=== PATIENT | female | born 1980 | race American Indian/Alaskan Native ===

== ENCOUNTER 2017-01-27 10:32 | Outpatient (CLI) | payer BC ==
--- NOTE | 2017-01-30 11:54 | Magnetic Resonance Report ---
MRI PELVIS WITHOUTAND WITH CONTRAST: 01/27/17 CLINICAL: Pelvic pain and bleeding. COMPARISON :None. TECHNIQUE: Sagittal, coronal and axial T1 and T2 fat sat sequences plus sagittal, coronal and axial postcontrast T1 fat sequences on a 1.5 Roxanne magnet. 15 cc of Multihance was injected intravenously for contrast portion of exam the consent was obtained prior to the administration of contrast. FINDINGS: The uterus measures 10 cm in length by 5.3 cm AP dimension by 5.4 cm transverse dimension. No uterine fibroid or mass. A fundal submucosal myometrial cyst measures 7.0 mm. The endometrium is normal and measures 5.2 mmAP thickness. Several small nabothian cysts in the cervix. The uterus demonstrates relatively homogeneous enhancement postcontrast. Normal ovaries with small follicles. A dominant follicle of the right ovary measures 5 mm. No adnexal mass. Mild physiologic free fluid. Normal urinary bladder and rectum. The bones and soft tissues are normal. IMPRESSION: 1. A single 7 mm submucosal myometrial cyst and otherwise normal uterus. No uterine fibroid or mass. 2. Normal endometrium. 3. Normal ovaries.
== END 2017-01-27 10:33 | disposition home or self-care (01) ==
LOC: SPVIMAG 10:32
PROVIDERS: ATTEND Radiology Vascular & Interventional Radiology
DX: N85.8 Other specified noninflammatory disorders of uterus (principal); N93.9 Abnormal uterine and vaginal bleeding, unspecified
CPT/HCPCS: 72197; A9577

== ENCOUNTER 2017-03-28 08:14 | Outpatient (CLI) | payer BC ==
--- NOTE | 2017-03-28 09:52 | Cat Scan Report ---
CT ABDOMEN AND PELVIS WITHOUT CONTRAST: 03/28/17 08:14:00 CLINICAL:Urinary tract infections. ICD 10: N39.0 TECHNIQUE: Volumetric acquisition and 1.25 millimeter scan reconstructions from the lung bases through the iliac crest. The study was performed without oral contrast. FINDINGS: Abdomen:The right kidney measures 8.5 x 5.9 x 4.5 cm and the left kidney measures 9.1 x 4.3 x 5.3 cm. Normal renal contours. No renal calculus, mass or cyst. Normal nondilated renal collecting systems and ureters. No ureteral calculus. Normal adrenal glands. Normal aorta and inferior vena cava. Normal liver and bile ducts status post cholecystectomy. Normal stomach, duodenum, pancreas and spleen. No ascites and no pneumoperitoneum. The small bowel and colon are normal. An appendix is not identified. Pelvis: Normal urinary bladder and rectum.A mildly enlarged fibroid uterus measures 11.0 x 5.9 x 8.0 cm. A 1.2 cm right fundal intramural fibroid is the only measurable fibroid. Ovaries are not identified. No adnexal mass or free fluid. Phleboliths in the pelvis. Normal sigmoid colon. IMPRESSION: 1. Normal urinary tract with no urinary calculus identified. 2. Status post cholecystectomy. 3. Uterine leiomyomata with mild uterine enlargement.
== END 2017-03-28 08:15 | disposition home or self-care (01) ==
LOC: SPVIMAG 08:14
PROVIDERS: ATTEND Urology
DX: N39.0 Urinary tract infection, site not specified (principal); D25.1 Intramural leiomyoma of uterus; N85.2 Hypertrophy of uterus; I87.8 Other specified disorders of veins; Z90.49 Acquired absence of other specified parts of digestive tract
CPT/HCPCS: 74176

== ENCOUNTER 2017-11-02 15:36 | Emergency (ER) | payer BC ==
[2017-11-02 16:03] VITALS: BP 125/82
[2017-11-02 18:06] LABS: Bilirubin,Urine NEG (Negative); Blood,Urine LG (Negative); Color,Urine Yellow (Yellow); Mucus,Urine FEW /HPF; Nitrite,Urine NEG (Negative); Protein,Urine <15 mg/dL mg/dL (Negative); Urobilinogen,Urine < 2.0 mg/dL (<2.0)
--- NOTE | 2017-11-02 19:16 | Emergency Department Report ---
Chief Complaint: Vaginal Bleeding Stated Complaint: SENT BY FATS AND OILS LOADER - [facility] History of Present Illness: 37-year-old female who has had 18 days of constant vaginal bleeding. She was evaluated on Monday by associate of her primary experimental flight test mechanic Dr. Daley. She now has dizziness, generalized weakness and right flank pain. - Exam Vital Signs: Vital Signs 11/02/17 15:52 Temperature 97.2 F L Pulse Rate 70 Respiratory 16 Rate Blood Pressure 125/82 O2 Sat by Pulse 100 Oximetry MSE screening note: Focused history and physical exam performed. Due to findings the following was ordered: ED Disposition for MSE Condition: Stable
[2017-11-02 20:13] LABS: Basophils # (Auto) 0.1 K/mm3 (0.0-0.1); Basophils % (Auto) 0.9 % (0.0-1.8); Eosinophils # (Auto) 0.4 K/mm3 (0.0-0.4); Eosinophils % (Auto) 4.4 % (0.0-4.3); Hematocrit 36.5 % (30.3-42.9); Hemoglobin 11.7 gm/dl (10.1-14.3); Lymphocytes # (Auto) 3.3 K/mm3 (1.2-5.4); Lymphocytes % (Auto) 35.4 % (13.4-35.0); Mean Corpuscular HGB Conc 32 % (30-34); Mean Corpuscular Hemoglobin 27 pg (28-32); Mean Corpuscular Volume 85 fl (79-97); Monocytes # (Auto) 0.4 K/mm3 (0.0-0.8); Monocytes % (Auto) 4.4 % (0.0-7.3); Platelet Count 186 K/mm3 (140-440); Red Blood Count 4.29 M/mm3 (3.65-5.03); Red Cell Distribution Width 15.6 % (13.2-15.2)
[2017-11-02] MEDS ORDERED: NACL 0.9% 1000 ML 1,000 ML IV ONE (20:20)
[2017-11-02 20:24] LABS: BUN/Creatinine Ratio 20; Blood Urea Nitrogen 14 mg/dL (7-17); Calcium 8.6 mg/dL (8.4-10.2); Hemolysis Index 7
--- NOTE | 2017-11-02 22:23 | Ultrasound Report ---
FINAL REPORT PROCEDURE: US PELVIC COMPLETE TECHNIQUE: Real-time transabdominal sonography in multiple planes of pelvis was performed with image documentation. This examination was performed without Doppler. Vascular abnormalities, including ovarian torsion, will not be detectable without Doppler evaluation. CPT 03211 HISTORY: heavy vaginal bleeding COMPARISON: No prior studies are available for comparison. FINDINGS: UTERUS Size: 10 x 5 x 6 cm. Endometrial thickness: 18 mm. Orientation: anteverted. Cervix: Normal. A small well-defined cystic lesion measuring 1.2 x 0.8 centimeters is noted near the right uterine cornua. RIGHT Ovary: 2.7 x 1.7 x 1.7 cm. Appearance: Normal. LEFT Ovary: 3.4 x 1.8 x 3.4 cm. Appearance: A cystic lesion measuring 2.5 x 1.4 centimeters is noted.. Pelvic fluid: Minimal free fluid is noted in the pelvic cavity which is within physiologic limits.. Other: None. IMPRESSION: Endometrium is 18 millimeters in thickness. A nonspecific cystic lesion measuring 1.2 x 0.8 centimeters is noted near the right uterine cornu. This most likely represents a an endometrial cyst. Clinical correlation is recommended to rule out other etiologies such as a gestational sac. Follow-up studies are recommended. A small cystic lesion right ovary most likely represents a dominant follicle.
--- NOTE | 2017-11-02 22:26 | Ultrasound Report ---
FINAL REPORT PROCEDURE: US TRANSVAGINAL TECHNIQUE: Real-time transvaginal sonography in multiple planes of the pelvis was performed with image documentation. This examination was performed without Doppler. Vascular abnormalities, including ovarian torsion, will not be detectable without Doppler evaluation. CPT 76378 HISTORY: heavy vaginal bleeding COMPARISON: No prior studies are available for comparison. FINDINGS: UTERUS Size: 10 x 5 x 6 cm. Endometrial thickness: 18 mm. Orientation: anteverted. Cervix: Normal. A small well-defined cystic lesion measuring 1.2 x 0.8 centimeters is noted near the right uterine cornua. RIGHT Ovary: 2.7 x 1.7 x 1.7 cm. Appearance: Normal. LEFT Ovary: 3.4 x 1.8 x 3.4 cm. Appearance: A cystic lesion measuring 2.5 x 1.4 centimeters is noted.. Pelvic fluid: Minimal free fluid is noted in the pelvic cavity which is within physiologic limits.. Other: None. IMPRESSION: Endometrium is 18 millimeters in thickness. A nonspecific cystic lesion measuring 1.2 x 0.8 centimeters is noted near the right uterine cornu. This most likely represents a an endometrial cyst. Clinical correlation is recommended to rule out other etiologies such as a gestational sac. Follow-up studies are recommended. A small cystic lesion right ovary most likely represents a dominant follicle. Findings of this critical report were conveyed to Dr. Hoyt at 10:21 p.m. EST on 11/02/2017.
--- NOTE | 2017-11-02 23:01 | Emergency Department Report ---
ED Female HPI - General Chief complaint: Vaginal Bleeding Stated complaint: SENT BY PRN OCCUPATIONAL THERAPIST Time Seen by Provider: 11/02/17 20:19 Source: patient Mode of arrival: Ambulatory Limitations: No Limitations - History of Present Illness Initial comments: Patient is a 37-year-old female who is presenting with heavy vaginal bleeding for approximately 2 weeks. Patient states that she's never bled to this degree before. Patient states she saw her PRN OCCUPATIONAL THERAPIST who started her on Lysteda however she is still having bleeding and now also has abdominal cramping as well as diarrhea which is side effects of this medication. Patient denies any fevers chills nausea vomiting diarrhea. Patient does state that she' s had some mild shortness of breath fatigued as well however she is taking iron pills. MD Complaint: vaginal bleeding, pelvic pain Severity scale (0 -10): 6 Quality: cramping Improves with: none Associated Symptoms: vaginal bleeding (patient does state that she's been passing clots). denies: vaginal discharge - Related Data Previous Rx's Medication Instructions Recorded Last Taken Type HYDROcodone/APAP 5-325 [[place] 1 each PO Q6HR PRN #12 tablet 11/02/17 Unknown Rx 5/325] medroxyPROGESTERone ACETATE 10 mg PO DAILY #5 tablet 11/02/17 Unknown Rx [Provera] Allergies Allergy/AdvReac Type Severity Reaction Status Date / Time azithromycin Allergy Nausea Verified 11/02/17 15:51 ED Review of Systems ROS: Stated complaint: SENT BY PRN OCCUPATIONAL THERAPIST Other details as noted in HPI Comment: All other systems reviewed and negative ED Past Medical Hx - Past Medical History Previous Medical History?: No - Surgical History Past Surgical History?: Yes Hx Cholecystectomy: Yes Hx Appendectomy: Yes Additional Surgical History: TUBAL LIGATION, ULNAR SURG - Social History Smoking Status: Never Smoker Substance Use Type: Alcohol - Medications Home Medications: Home Medications Medication Instructions Recorded Confirmed Last Taken Type HYDROcodone/APAP 5-325 [[place] 1 each PO Q6HR PRN #12 tablet 11/02/17 Unknown Rx 5/325] medroxyPROGESTERone ACETATE 10 mg PO DAILY #5 tablet 11/02/17 Unknown Rx [Provera] ED Physical Exam - General Limitations: No Limitations General appearance: alert, in no apparent distress - Head Head exam: Present: atraumatic, normocephalic - Eye Eye exam: Present: normal appearance - ENT ENT exam: Present: mucous membranes moist - Neck Neck exam: Present: normal inspection - Respiratory Respiratory exam: Present: normal lung sounds bilaterally. Absent: respiratory distress, wheezes, rales - Cardiovascular Cardiovascular Exam: Present: regular rate, normal rhythm. Absent: systolic murmur, diastolic murmur, rubs, gallop - GI/Abdominal GI/Abdominal exam: Present: soft, tenderness (mild suprapubic tenderness), normal bowel sounds. Absent: distended, guarding, rebound - Extremities Exam Extremities exam: Present: normal inspection - Back Exam Back exam: Present: normal inspection - Neurological Exam Neurological exam: Present: alert, oriented X3 - Psychiatric Psychiatric exam: Present: normal affect, normal mood - Skin Skin exam: Present: warm, dry, intact, normal color. Absent: rash ED Course Vital Signs 11/02/17 11/02/17 15:52 20:54 Temperature 97.2 F L Pulse Rate 70 Respiratory 16 18 Rate Blood Pressure 125/82 O2 Sat by Pulse 100 Oximetry ED Medical Decision Making - Lab Data Result diagrams: 11/02/17 19:36 11/02/17 19:36 - Medical Decision Making Patient's hemoglobin was within normal limits was 11.7. Patient did have an ultrasound done here in the emergency Department that showed endometrial cyst. Patient's test is negative. Patient will be started on Provera and Vicodin for pain control and be sent back to PRN OCCUPATIONAL THERAPIST for further management Critical care attestation.: If time is entered above; I have spent that time in minutes in the direct care of this critically ill patient, excluding procedure time. ED Disposition Clinical Impression: DUB (dysfunctional uterine bleeding) Disposition: - TO HOME OR SELFCARE Is pt being admited?: No Does the pt Need Aspirin: No Condition: Fair Instructions: Dysfunctional Uterine Bleeding (ED) Prescriptions: HYDROcodone/APAP 5-325 [[place] 5/325] 1 each PO Q6HR PRN #12 tablet PRN Reason: Pain medroxyPROGESTERone ACETATE [Provera] 10 mg PO DAILY #5 tablet Referrals: OSCAR SMITH MD [Primary Care Provider] - 3-5 Days
== END 2017-11-02 23:17 | disposition home or self-care (01) ==
LOC: ED 15:36
DX: N93.8 Other specified abnormal uterine and vaginal bleeding (principal); Z90.49 Acquired absence of other specified parts of digestive tract; Z98.51 Tubal ligation status; Z88.1 Allergy status to other antibiotic agents
CPT/HCPCS: 36415; 76830; 76856; 80048; 81001; 84702; 85025; 86850; 86900; 86901; 96360; 99284; J7030

== ENCOUNTER 2017-11-21 08:04 | Day surgery (SDC) | payer BC ==
--- NOTE | 2017-11-20 18:49 | History and Physical Report ---
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 Ku) cystoscopy (2017) Abnormal PAP: positive Infection History HIV Risk Eval: no Personal hx. of genital herpes: yes Hx of STD: HSV Other: HSV Active Medications: IRON () IBUPROFEN 800 MG ORAL TABLET (IBUPROFEN) 1 po q6 hr prn pain ALEVE 220 MG ORAL CAPSULE (NAPROXEN SODIUM) SYMBICORT 160-4.5 MCG/ACT INHALATION AEROSOL (BUDESONIDE-FORMOTEROL FUMARATE) Current Allergies: ZITHROMAX (AZITHROMYCIN TABS) (Critical) Past Medical History: Reviewed history from 04/17/2017 and no changes required: Pre-diabetes Allergies-seasonal Hyperlipidemia Past Surgical History: Reviewed history from 07/28/2017 and no changes required: Tubal Ligation Appendectomy ulna(R) Cholecystectomy urethral dilation (2017) Dr. Ku) cystoscopy (2017) Risk Factors: PAP Smear History: Date of Last PAP Smear: 04/17/2017 Laboratory Results Date/Time Collected: 11/15/2017 Urine HCG: negative Physical Exam Appearance: well developed, well nourished, no acute distress Other Exams Abdomen: soft, non-tender, no masses, Genitourinary Exam Vulva: normal, no lesions or discharge Urethral meatus: normal size and location, no lesions or discharge Urethra: no discharge Bladder: no cystocele Vagina: normal appearance, no discharge, lesions. No evidence of cystocele or rectocele. Cervix: mass, probable prolapsed polyp/fibroid Adnexa: no masses or tenderness Impression & Recommendations: Problem # 1: Excessive and frequent menstruation with irregular cycle (ICD- 626.6) (KPL19-K75.1) Her updated medication list for this problem includes: Ibuprofen 800 Mg Oral Tablet (Ibuprofen) ..... 1 po q6 hr prn pain Aleve 220 Mg Oral Capsule (Naproxen sodium) Orders: Problem # 2: Lump of cervix (ICD-625.8) (KFI79-M89.09) Orders: Will proceed with hysteoscopy D&C and excision of mass Consent reviewed and signed . Possible laparoscopy or laparotomy explained to patient. The risks and alternatives for this surgery were reviewed with the patient. She was informed of possible bleeding, infection, injury to bowel, bladder, ureters or other adjacent organs. The patient was instructed/informed the following: The normal length of hospital stay for this procedure. Nothing to eat or drink after midnight the evening prior to surgery. Clear liquids the day before surgery. Fleets enema the day prior to surgery. Pre-op instruction sheets given. Wound care instructions given. Infection precautions reviewed, patient to call for any signs or symptoms of infection. The usual discomforts associated with this procedure were detailed. Proper use of pain medicines was reviewed. Patient was given ample opportunity to have all her questions answered before signing informed consent. Medications Added to Medication List This Visit: 1) Oxycodone-acetaminophen 5-325 Mg Oral Tablet (Oxycodone-acetaminophen) .... 1-2po q6h 2) Ibuprofen 800 Mg Oral Tablet (Ibuprofen) .... 1 po q6 hr prn pain Other Orders: Urine Test (UPT) (CPT-[id number]) Prescriptions: IBUPROFEN 800 MG ORAL TABLET (IBUPROFEN) 1 po q6 hr prn pain #30 x 1 Entered and Authorized by: Silva Daley MD Method used: Print then Give to Patient RxID: [id number] OXYCODONE-ACETAMINOPHEN 5-325 MG ORAL TABLET (OXYCODONE-ACETAMINOPHEN) 1-2po q6h #12 Tablet x 0 Entered and Authorized by: Silva Daley MD Method used: Print then Give to Patient RxID: [id number] Medications and Allergies Allergies Allergy/AdvReac Type Severity Reaction Status Date / Time azithromycin Allergy Nausea Verified 11/20/17 10:49 Home Medications Medication Instructions Recorded Confirmed Last Taken Type HYDROcodone/APAP 5-325 [[place] 1 each PO Q6HR PRN #12 tablet 11/02/17 11/20/17 Unknown Rx 5/325] Active Meds: Active Medications Cefazolin Sodium (Ancef/Sterile Water 2 Gm/20 Ml) 2 gm in 20 mls @ 80 mls/hr IV PREOP NR PRN Reason: Protocol Exam - Respiratory Positive: normal respiratory effort, clear to auscultation - Cardiovascular Rhythm: regular Assessment and Plan - Patient Problems (1) Cervical mass Status: Acute (2) Excessive and frequent menstruation with irregular cycle Status: Acute
[~2017-11-21 08:04] MED LIST: ANCEF/STERILE WATER 2 GM/20 ML 2 GM/20 ML SYRINGE IV NR
[2017-11-21] MEDS ORDERED: NACL BACTERIOSTATIC INFILTRATI ONE (09:06)
--- NOTE | 2017-11-21 09:21 | Anesthesia Consultation ---
Anesthesia Consult and Med Hx Date of service: 11/21/17 - Airway Anesthetic Teeth Evaluation: Good ROM Head & Neck: Adequate Mental/Hyoid Distance: Adequate Mallampati Class: Class II Intubation Access Assessment: Probably Good - Pulmonary Exam CTA: Yes - Cardiac Exam Cardiac Exam: RRR - Pre-Operative Health Status ASA Pre-Surgery Classification: ASA2 Proposed Anesthetic Plan: General - Pulmonary Hx Asthma: Yes (last treated about 2 wks ago) - Cardiovascular System Hx Hypertension: No - Central Nervous System Hx Psychiatric Problems: No - Endocrine Hx Non-Insulin Dependent Diabetes: No - Other Systems Hx Alcohol Use: Yes (occas)
--- NOTE | 2017-11-21 09:21 | Anesthesia Day of Surgery ---
Anesthesia Day of Surgery - Day of Surgery Patient Examined: Yes Patient H&P Reviewed: Yes Patient is NPO: Yes
[2017-11-21] MEDS ORDERED: VERSED IV NR (10:00)
[2017-11-21] MEDS ORDERED: LACTATED RINGERS 1,000 ML IV SCH (10:00)
[2017-11-21] MEDS ORDERED: PEPCID PO NR (10:00)
[2017-11-21] MEDS ORDERED: DILAUDID ONE (10:52)
[2017-11-21] MEDS ORDERED: XYLOCAINE MPF 2% ONE (10:52)
[2017-11-21] MEDS ORDERED: SILVER NITRATE TP ONE (10:52)
[2017-11-21] MEDS ORDERED: DIPRIVAN 10 MG/ML IV ONE (10:52)
[2017-11-21] MEDS ORDERED: NACL 0.9% IR ONE (11:22)
[2017-11-21] MEDS ORDERED: ZOFRAN ONE (11:33)
[2017-11-21] MEDS ORDERED: MONSEL'S TP ONE (11:35)
[2017-11-21] MEDS ORDERED: LUGOL'S SOLUTION 5% TP ONE (11:39)
[2017-11-21] MEDS ORDERED: DEMEROL IV PRN (12:01)
[2017-11-21] MEDS ORDERED: DEMEROL ONE (12:04)
[2017-11-21] MEDS ORDERED: BENADRYL IV ONE (13:02)
--- NOTE | 2017-11-21 13:07 | Discharge Summary ---
Providers - Providers Date of discharge: 11/21/17 Attending physician: JIMENEZ TORRES Primary care physician: OSCAR SMITH Hospitalization Condition: Good Procedures: Hysteroscopy, D&C with excision of endocervical mass Hospital course: uncomplicated Disposition: DC-01 TO HOME OR SELFCARE - Discharge Diagnoses (1) Cervical mass Status: Resolved (2) Excessive and frequent menstruation with irregular cycle Status: Resolved Core Measure Documentation - Palliative Care Palliative Care/ Comfort Measures: Not Applicable - Core Measures Any of the following diagnoses?: none Exam - Constitutional Vitals: Temp Pulse Resp BP Pulse Ox 97.2 F L 51 L 16 104/65 100 11/21/17 12:43 11/21/17 12:43 11/21/17 12:43 11/21/17 12:43 11/21/17 12:43 General appearance: Present: no acute distress - Respiratory Respiratory effort: normal - Cardiovascular Rhythm: regular Plan Activity: other (No sex) Weight Bearing Status: Full Weight Bearing Diet: regular Special Instructions: no heavy lifting Follow up with: OSCAR SMITH MD [Primary Care Provider] - 7 Days JIMENEZ TORRES MD [Staff Physician] - (as scheduled)
--- NOTE | 2017-11-21 13:07 | Post Operative Note ---
Pre-op diagnosis: menometrorrhagia, cervical mass Post-op diagnosis: same Dry Color Mixer: JIMENEZ TORRES Estimated blood loss: minimal Specimen disposition: to lab Condition: stable Disposition: PACU
[2017-11-21 13:24] VITALS: BP 129/73
--- NOTE | 2017-11-21 16:44 | Operative Report ---
Operative Report Operative Report: Date: 11/21/2017 Preoperative diagnosis: 1. Menometrorrhagia 2. Cervical mass Postoperative diagnosis: 1. Menometrorrhagia 2. Endocervical polyp . Procedure: 1. Cervical dilation 2. Diagnostic hysteroscopy 3. Uterine curettage 4. Removal of endocervical polyp Surgeon: Silva Daley MD Data Mining Analyst: [] Anesthesiologist: Yony Avalos M.D. Anesthesia: Gen. anesthesia EBL: Minimal Findings: Uterine cavity length: 8 cm Distention medium: Normal saline Fluid deficit: 65 mL Procedure: After risks, benefits, complications, consequences and alternatives for this procedure were explained, and patient voiced her understanding and her desire to proceed, she is taken to the OR and placed in the supine position. General anesthesia was induced. She was placed in the dorsolithotomy position. Exam under anesthesia was a mass protruding from the cervix. She was then prepped and draped in usual sterile fashion. Timeout was performed. A bladder was drained of approximately 100 mL's of clear urine . A operative speculum was introduced was introduced into the vagina. The anterior lip of the cervix was grasped with single-tooth tenaculum and the uterus was sounded to 8 cm. The cervix was progressively dilated to allow the operative hysteroscope. The uterine cavity was normal. The base of the polyp was noted on the left lower posterior aspect of the cervix. The mass was grasped with ring forceps and twisted from its base. Uterine curettage was then performed. The hysteroscope was introduced again into the cavity of the uterus. No obvious evidence of perforation was noted. Monsel solution was applied endocervical canal to ensure further hemostasis. Hemostasis was noted. The procedure was ended. The speculum and the tenaculum were removed. Hemostasis was noted. No bleeding from the tenaculum site was noted. Patient tolerated procedure well and taken to recovery room in stable condition
== END 2017-11-21 13:55 | disposition home or self-care (01) ==
LOC: OR 08:04
PROVIDERS: ATTEND Obstetrics & Gynecology
DX: N84.1 Polyp of cervix uteri (principal); J45.909 Unspecified asthma, uncomplicated; Z88.1 Allergy status to other antibiotic agents; Z98.51 Tubal ligation status; Z98.890 Other specified postprocedural states
CPT/HCPCS: 36415; 58558; 84703; 86850; 86900; 86901; 88305; A4217; J0690; J1170; J1200; J2175; J2250; J2405; J2704; J7120

== ENCOUNTER 2019-12-10 10:55 | Outpatient (CLI) | payer BC, OTHER ==
--- NOTE | 2019-12-10 12:09 | Mammography Report ---
BILATERAL DIGITAL DIAGNOSTIC MAMMOGRAM WITH CAD 12/10/2019 LEFT LIMITED BREAST ULTRASOUND INDICATION: Left breast lump. F/U abnormal mammogram TECHNIQUE: Digital bilateral mammographic imaging was performed. Spot compression views were obtaine d. Limited ultrasound was performed. This examination was interpreted with the benefit of Computer- ded Detection (CAD) analysis. COMPARISON: 01/22/2019 mammogram from [facility] FINDINGS: Breast Density: The breasts are heterogeneously dense, which may obscure small masses. MAMMOGRAPHIC FINDINGS: There is no evidence of dominant mass, suspicious calcifications or architectu ral distortion in the right breast. A partially circumscribed oval left focal asymmetry persists with spot compression. No architectural distortion or suspicious calcifications of the left breast. ULTRASOUND FINDINGS: Targeted ultrasound evaluation was performed of the area of interest. Ultrasou nd of the outer left breast was performed and demonstrated an oval benign cyst at 3:30 o'clock 4 cm f rom the nipple measuring 1.7 x 1.7 x 0.8 cm. It correlates with the mammographic density. IMPRESSION: A benign 1.7 cm left breast cyst at 3:30 o'clock 4 cm from the nipple. Negative right jj ast. Follow up recommendation: Routine yearly BI-RADS Category 2: Benign. A "normal" or negative report should not discourage follow up or biopsy of a clinically significant f inding. A written summary of these findings will be mailed to the patient. The patient will be entered into a mammography reporting system which will generate a reminder letter for the patient's next appointmen t at the appropriate interval. According to the [employer], yearly mammograms are recommended starting at age 40 and continuing as long as a woman is in good health. Breast MRI is recommended for women with an raffaele roximately 20-25% or greater lifetime risk of breast cancer, including women with a strong family his tory of breast or ovarian cancer and women who have been treated for Hodgkin's disease. Signer Name: Bo Queen MD Signed: 12/10/2019 12:05 PM Workstation Name: [id number]
== END 2019-12-10 10:56 | disposition home or self-care (01) ==
LOC: SPVWC 10:55
PROVIDERS: ATTEND Surgery
DX: N63.23 Unspecified lump in the left breast, lower outer quadrant (principal); N60.11 Diffuse cystic mastopathy of right breast; N60.12 Diffuse cystic mastopathy of left breast
CPT/HCPCS: 77066

== ENCOUNTER 2019-12-17 08:14 | Day surgery (SDC) | payer BC, OTHER ==
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
[~2019-12-17 08:14] MED LIST changes: -ANCEF/STERILE WATER 2 GM/20 ML 2 GM/20 ML SYRINGE IV NR; +CELECOXIB 200 MG CAP PO NR; +GABAPENTIN 300 MG CAP PO NR; +MIDAZOLAM 2 MG/2 ML INJ IV NR; +ceFAZolin/Water 2 GM/20 ML 2 GM/20 ML SYRINGE IV NR
[2019-12-17] MEDS ORDERED: LACTATED RINGERS 1,000 ML IV SCH (09:00)
[2019-12-17] MEDS ORDERED: HYDROmorphone 1 MG/1 ML INJ IV PRN (09:47)
--- NOTE | 2019-12-17 09:48 | Anesthesia Consultation ---
Anesthesia Consult and Med Hx Date of service: 12/17/19 - Airway Anesthetic Teeth Evaluation: Good ROM Head & Neck: Adequate Mental/Hyoid Distance: Adequate Mallampati Class: Class II Intubation Access Assessment: Probably Good - Pre-Operative Health Status ASA Pre-Surgery Classification: ASA2 Proposed Anesthetic Plan: General - Pulmonary Hx Asthma: Yes (seasonal, used inhaler in AM) - Central Nervous System Hx Psychiatric Problems: No - Gastrointestinal Hx Ulcer: No (abdominal pain) Hx Gastroesophageal Reflux Disease: Yes (gastroparesis) - Endocrine Hx Insulin Dependent Diabetes: No Hx Non-Insulin Dependent Diabetes: No Hx Thyroid Disease: No - Hematic Hx Anemia: Yes - Other Systems Hx Alcohol Use: Yes (occas) Hx Cancer: No - Additional Comments Anesthesia Medical History Comments: s/p partial hysterectomy in 09/19
--- NOTE | 2019-12-17 09:49 | Anesthesia Day of Surgery ---
Anesthesia Day of Surgery - Day of Surgery Patient Examined: Yes Patient H&P Reviewed: Yes Patient is NPO: Yes
[2019-12-17] MEDS ORDERED: MIDAZOLAM 2 MG/2 ML INJ ONE ×2 (09:52→10:06)
[2019-12-17] MEDS ORDERED: CELECOXIB 200 MG CAP ONE (09:52)
[2019-12-17] MEDS ORDERED: GABAPENTIN 300 MG CAP ONE ×2 (09:52→09:57)
[2019-12-17] MEDS ORDERED: BUPIVACAINE/PF (0.5%) 5 MG/1 ML 30 ML VIAL INFILTRATI ONE (10:01)
[2019-12-17] MEDS ORDERED: ROCURONIUM 50 MG/5 ML INJ IV ONE (10:06)
[2019-12-17] MEDS ORDERED: fentaNYL 100 MCG/2 ML INJ ONE (10:06)
[2019-12-17] MEDS ORDERED: LIDOCAINE MPF (2%) 20 MG/1 ML VIAL 5 ML ONE (10:06)
[2019-12-17] MEDS ORDERED: METOCLOPRAMIDE 10 MG/2 ML INJ ONE (10:07)
[2019-12-17] MEDS ORDERED: NEOSTIGMINE 10MG/10 ML INJ MDV ONE (10:07)
[2019-12-17] MEDS ORDERED: propofoL 200 MG/20 ML VIAL IV ONE (10:07)
[2019-12-17] MEDS ORDERED: GLYCOPYRROLATE 0.4 MG/2 ML INJ ONE (10:07)
[2019-12-17] MEDS ORDERED: KETOROLAC 30 MG/1 ML INJ ONE (10:07)
[2019-12-17] MEDS ORDERED: ONDANSETRON 4 MG/2 ML INJ ONE (10:07)
[2019-12-17] MEDS ORDERED: dexAMETHasone 20 MG/5 ML VIAL ONE (10:07)
[2019-12-17] MEDS ORDERED: SILVER NITRATE APPLICATOR 1 EA TP ONE ×2 (10:43→10:53)
[2019-12-17] MEDS ORDERED: SUGAMMADEX SODIUM 200 MG/2 ML VIAL IV ONE (10:50)
--- NOTE | 2019-12-17 11:15 | Post Operative Note ---
Pre-op diagnosis: vaginal bleeding, pelvic pain Post-op diagnosis: same Findings: Normal pelvic exam, vaginal cuff intact, area of granulation tissue at apex Procedure: EUA Chemical cautery of granulation tissue Anesthesia: GETA Surgeon: JIMENEZ TORRES Estimated blood loss: none Pathology: none Condition: stable Disposition: PACU
--- NOTE | 2019-12-17 11:26 | Discharge Summary ---
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 Hospitalization Procedures: EUA, chemical cautery of granulation tissue Hospital course: no complication Disposition: [id number] TO HOME OR SELFCARE - Discharge Diagnoses (1) Vaginal bleeding Status: Acute (2) Pelvic pain Status: Acute Core Measure Documentation - Palliative Care Palliative Care/ Comfort Measures: Not Applicable - Core Measures Any of the following diagnoses?: none Exam - Constitutional Vitals: Temp Pulse Resp BP Pulse Ox 97.5 F L 75 16 105/65 100 12/17/19 09:10 12/17/19 09:10 12/17/19 09:10 12/17/19 09:10 12/17/19 09:10 General appearance: Present: no acute distress - Respiratory Respiratory effort: normal - Cardiovascular Rhythm: regular - Psychiatric Psychiatric: appropriate mood/affect, intact judgment & insight, memory intact, cooperative Plan Activity: other (no sex) Weight Bearing Status: Full Weight Bearing Diet: regular Care Plan Goals: Complete recovery Plan of Treatment: Allow home Health Concerns: None, Assessment: Allow home when she meets post op criteria Follow up with: PRIMARY CARE, [Primary Care Provider] - 7 Days JIMENEZ TORRES MD [Staff Physician] - (As scheduled)
--- NOTE | 2019-12-17 11:38 | Operative Report ---
Operative Report Operative Report: Date: 12/17/2019 Preoperative diagnosis: 1. Vaginal bleeding after sex 2. Pelvic pain after sex 3. Body mass index of 29 kg/m Postoperative diagnosis: 1. Vaginal bleeding after sex 2. Pelvic pain after sex 3. Body mass index of 29 kg/m 4. Vaginal cuff intact 5. Granulation tissue at apex of vaginal cuff with slight bleeding during exam 6. Otherwise normal pelvis Procedure: 1. Examination under anesthesia 2. Chemical cautery of granulation tissue using silver nitrate Surgeon: Silva Daley MD Switch Coupler: Dalia Claire CST Anesthesiologist: Dr. Moss Anesthesia: General endotracheal anesthesia EBL: Approximately 0 mL Findings: EUA: See above Indication: Patient is status post robotic assisted laparoscopic total hysterectomy in September 2019. After having sex recently she had vaginal bleeding and experienced pelvic pain. She presented to the office for evaluation. At which time it appeared that the vaginal cuff may have dehisced with tissue at the apex. Patient was unable to tolerate exam well in the office. Ultrasound and CT were unremarkable. However due to patient's persistent pelvic pressure and history of vaginal bleeding the decision was made to perform exam under anesthesia with possible diagnostic laparoscopy to be determined at the time of exam under anesthesia. Procedure: After again discussing procedure with patient and her and anticipated course of care, patient was taken to the OR where she was prepped and draped in the usual sterile fashion for laparoscopic surgery. Timeout was performed. Speculum was placed in the vagina. Intact vaginal cuff was noted with an approximately 1 cm area of granulation tissue that had minimal bleeding during the exam. Silver nitrate was applied to the granulation tissue. Then manual pelvic exam was performed. Again all portions of the cuff appeared to be intact. No pelvic masses were palpated. The speculum was reintroduced into the vagina no bleeding was noted. At which point the procedure was ended the patient was taken to recovery room in stable condition thank
--- NOTE | 2019-12-17 12:13 | Post Anesthesia Evaluation ---
- Post Anesthesia Evaluation Patient Participated: Yes Airway Patent: Yes Stable Respiratory Function: Yes Nausea/Vomiting: No Temp > 96.8F: Yes Pain Manageable: Yes Adequeate Hydration: Yes Anesthesia Complications: No
[2019-12-17 13:13] VITALS: BP 119/72
== END 2019-12-17 13:20 | disposition home or self-care (01) ==
LOC: OR 08:14
PROVIDERS: ATTEND Obstetrics & Gynecology
DX: N93.8 Other specified abnormal uterine and vaginal bleeding (principal); R10.2 Pelvic and perineal pain; D64.9 Anemia, unspecified; K21.9 Gastro-esophageal reflux disease without esophagitis; J45.909 Unspecified asthma, uncomplicated; Z90.49 Acquired absence of other specified parts of digestive tract; Z79.899 Other long term (current) drug therapy; Z88.8 Allergy status to other drugs, medicaments and biological substances; Z90.710 Acquired absence of both cervix and uterus; Z98.890 Other specified postprocedural states; Z98.51 Tubal ligation status; Z72.89 Other problems related to lifestyle
CPT/HCPCS: 17250; 86850; 86900; 86901; J0690; J1100; J1885; J2250; J2405; J2704; J2710; J2765; J3010; J7120

== ENCOUNTER 2020-07-28 10:00 | Outpatient (CLI) | payer BC, OTHER ==
--- NOTE | 2020-07-29 15:10 | Magnetic Resonance Report ---
Bilateral breast MR without and with contrast. History: Family history of breast cancer. Personal history of fibrocystic change. Comparison: 12/10/2019, 01/22/2019. Technique: Multiplanar multisequence MR images of the breast were obtained before and after the intra venous administration of intravenous contrast. Post processing analysis and review was performed on a separate computer workstation. Findings: Breast composition is scattered fibroglandular. There is moderate background parenchymal enhancement within both breasts. LEFT BREAST: A 1.9 x 1.7 x 1 cm benign-appearing cyst in the left lateral breast is noted. Located al wilber the anterior superior lateral aspect of this cyst is a 5 x 6 x 4 mm focal area of enhancement. A few low level enhancing foci are also noted scattered throughout the left breast. The aforementioned focal area of enhancement near the cystic lesion stands out as it demonstrates slightly higher level enhancement and type I/type II enhancement kinetics. This is best seen on axial image 489. It may rep resent an intramammary lymph node, possibly displaced by the cystic lesion. RIGHT BREAST: No discrete enhancing mass, dominant focus, or other abnormal enhancement is identified within the right breast. No abnormal axillary or internal mammary lymph nodes. There is a 4.1 x 2.9 x 2.5 cm circumscribed area in the right anterior superior mediastinum. This dem onstrates fluid signal and may represent cystic lesion or fluid within a pericardial/mediastinal rece ss. Additionally, there is a trace right pleural effusion. Impression: There is a 6 mm focal area of enhancement located along the anterior superior lateral aspect of a pre viously noted cyst in the left breast at the 3:30 position (see 12/10/2019 exam). This may represent a n intramammary lymph node. A targeted ultrasound is recommended for further evaluation. If no sonogra phic correlate is identified, a short interval follow-up breast MRI in 6 months would be recommended. There is a trace right pleural effusion and a 4.1 cm area of fluid signal within the right anterior s uperior mediastinum. This is of unclear significance or etiology, possibly a cystic lesion versus flu id within a pericardial/mediastinal recess. Recommend dedicated CT of the chest (ideally with contra st) for further evaluation. BIRADS 0: Incomplete--Needs Additional Imaging Evaluation. A normal MRI does not exclude the presence of some forms of breast malignancy as literature reports s uggest that some forms of ductal carcinoma in situ or lobular carcinoma, particularly, may not be det ected on MRI. The sensitivity and specificity of MRI for cancers under 5 mm may be reduced. MRI does not replace the recommendation for annual conventional mammographic evaluation and should be used as an adjunct to mammography and physical examination as necessary. Signer Name: Cuco Jorgensen MD Signed: 07/29/2020 3:06 PM Workstation Name: [id number]
== END 2020-07-28 10:01 | disposition home or self-care (01) ==
LOC: SPVIMAG 10:00
PROVIDERS: ATTEND Surgery
DX: N60.02 Solitary cyst of left breast (principal); J90 Pleural effusion, not elsewhere classified; N60.32 Fibrosclerosis of left breast; N60.31 Fibrosclerosis of right breast; Z80.3 Family history of malignant neoplasm of breast
CPT/HCPCS: A9577; C8908; 77049

== ENCOUNTER 2020-08-11 07:41 | Outpatient (CLI) | payer BC, OTHER ==
[2020-08-11 08:36] LABS: Blood Urea Nitrogen 9 mg/dL (7-17)
--- NOTE | 2020-08-11 09:37 | Ultrasound Report ---
ULTRASOUND BREAST LEFT LIMITED, 08/11/2020 CLINICAL INFORMATION / INDICATION: ABNORMAL MAMMOGRAM. Patient presents for second look ultrasound of a small area of enhancement in the left breast seen on recent MRI. TECHNIQUE: Targeted ultrasound evaluation was performed of the area of interest. COMPARISON: Breast MRI 07/28/2020 and left breast ultrasound 12/10/2019 FINDINGS: Redemonstration of a benign simple cyst in the left breast 3:30 position located 4 cm from the nipple measuring up to 1.6 x 1.6 x 1.3 cm. An adjacent incidental 3 mm cyst is noted, and there is mild adj acent benign duct ectasia. No definitive sonographic correlate is identified for the focal area of en hancement seen on recent MRI. IMPRESSION: 1. Benign cysts and duct ectasia in the 3:30 left breast, without definite sonographic correlate for the small area of enhancement seen on recent MRI. Therefore, a short interval follow-up breast MRI in 6 months could be performed to ensure stability of the previously described finding. Follow up recommendation: Short term follow up in 6 months. BI-RADS Category 3: Probably Benign. Followup in 6 months. A normal or "negative" report should not preclude biopsy or follow-up of a clinically suspicious find ing. Signer Name: Neha Harrell MD Signed: 08/11/2020 9:32 AM Workstation Name: [id number]
--- NOTE | 2020-08-11 10:28 | Cat Scan Report ---
CT chest w con INDICATION: LEFT BREAST LUMP TIGHNESS IN LEFT ARM SOB . TECHNIQUE: All CT scans at this location are performed using the following dose modulation technique: Automated exposure control. Helical slices were obtained through the chest. 100 cc of Omnipaque 300 is administ ered. COMPARISON: CT scan dated 09/30/2019 recent breast MR dated 07/29/2020 FINDINGS: No pulmonary nodules or masses are seen. No focal infiltrate is seen. The pleura is unremarkable. The heart is upper limits of normal in size. There is no adenopathy in the mediastinum or in either a xilla. There is a cyst in the right anterior mediastinum there is a hypodense structure in the right anterior mediastinum which measures 4 x 2 x 3.6 cm. This may represent a pericardial cyst. Is present on the study from September 2019 but has increased in size. On the prior exam this measured up to 3.3 cm in maximum dimension. There is a 2 cm nodule in the left breast, series 3 image 190. There is a 13 mm nodule in the left lobe thyroid. No acute abnormality is seen in the upper abdomen. On review of bone windows, no acute osseous abnormalities are seen. IMPRESSION: There is a hypodense structure in the anterior mediastinum corresponding to the abnormality seen on r ecent breast MRI. I suspect that this represents a pericardial cyst. There is a 2 cm nodule in the left breast. Please see separate breast imaging exams. Incidental thyroid nodule measuring 1.3 cm located in left lobe. See below for follow-up recommendati on. Nonpalpable nodules detected on US or other anatomic imaging studies are termed incidentally discover ed nodules or incidentalomas. Nonpalpable nodules have the same risk of malignancy as palpable nodule s with the same size. Generally, only nodules >1 cm should be evaluated, since they have a greater po tential to be clinically significant cancers. (MK, 2009). Follow up for incidental thyroid nodules <1 cm is not recommended. In patients <35 years with an incidental thyroid nodule detected on CT, MRI, or extrathyroidal ultras ound, dedicated thyroid ultrasound is recommended if the nodule is 1 cm, has no suspicious imaging fe atures, and if the patient has normal life expectancy. In patients 35 years with an incidental thyroid nodule detected on CT, MRI, or extrathyroidal ultraso und, dedicated thyroid ultrasound is recommended if the nodule is 1.5 cm, has no suspicious imaging f eatures, and if the patient has normal life expectancy. Signer Name: Jim Henley MD Signed: 08/11/2020 10:23 AM Workstation Name: [id number]
== END 2020-08-11 07:42 | disposition home or self-care (01) ==
LOC: CT 07:41
PROVIDERS: ATTEND Surgery
DX: N60.02 Solitary cyst of left breast (principal); N60.42 Mammary duct ectasia of left breast; I31.8 Other specified diseases of pericardium; N63.20 Unspecified lump in the left breast, unspecified quadrant; E04.1 Nontoxic single thyroid nodule
CPT/HCPCS: 36415; 71260; 76642; 82565; 84520; Q9967

== ENCOUNTER 2021-01-14 13:41 | Outpatient (CLI) | payer BC, OTHER ==
--- NOTE | 2021-01-15 08:44 | Mammography Report ---
DIGITAL SCREENING MAMMOGRAM WITH TOMOSYNTHESIS WITH CAD, 01/14/2021 CLINICAL INFORMATION / INDICATION: Routine Screening Mammography. TECHNIQUE: Digital bilateral 2D and 3D mammography with tomosynthesis was obtained in the craniocaud al and mediolateral oblique projections. Computer-Aided Detection (CAD) analysis was used for interp retation of this study. COMPARISON: 12/10/2019, 01/22/2019 FINDINGS: Breast Density: The breasts are heterogeneously dense, which may obscure small masses. No dominant mass, suspicious calcifications, or architectural distortion in either breast. No interval change. IMPRESSION: No mammographic evidence of malignancy. Follow up recommendation: Routine yearly BI-RADS Category 1: Negative. A "normal" or negative report should not discourage follow up or biopsy of a clinically significant f inding. A written summary of these findings will be mailed to the patient. The patient will be entered into a mammography reporting system which will generate a reminder letter for the patient's next appointmen t at the appropriate interval. The [employer] recommends yearly mammograms starting at age 40 and continuing as l wilber as a woman is in good health. Breast MRI is recommended for women with an approximate 20-25% or greater lifetime risk of breast cancer, including women with a strong family history of breast or ova antonieta cancer or who have been treated for Hodgkin's disease. Signer Name: Lizz Hernandez MD Signed: 01/15/2021 8:39 AM Workstation Name: [id number]
== END 2021-01-14 13:42 | disposition home or self-care (01) ==
LOC: SPVWC 13:41
PROVIDERS: ATTEND Surgery
DX: Z12.31 Encounter for screening mammogram for malignant neoplasm of breast (principal)
CPT/HCPCS: 77063; 77067

== ENCOUNTER 2021-02-09 09:50 | Outpatient (CLI) | payer BC, OTHER ==
--- NOTE | 2021-02-09 11:38 | Magnetic Resonance Report ---
Bilateral breast MR without and with contrast. History: Patient at high risk for breast malignancy based upon family history. Personal history of ab normal prior MRI with finding noted in the left breast at the 3:30 position. Comparison: 01/14/2021, 08/11/2020, 07/28/2020. Technique: Multiplanar multisequence MR images of the breast were obtained before and after the intra venous administration of intravenous contrast. Post processing analysis and review was performed on a separate computer workstation. Findings: Breasts demonstrate heterogeneously dense fibroglandular tissue. There is moderate background parench ymal enhancement within both breasts which along with the presence of multiple scattered enhancing fo ci decreases the sensitivity of MRI.. LEFT BREAST: A previously noted 6 mm area of enhancement within the left breast at the 3:30 position is no longer identified. A cyst in this area has also resolved. A benign-appearing intramammary lymph node is noted more anteriorly at about the 3:00 position within the left breast. No suspicious mass, dominant focus, or other abnormal enhancement within the left breast. RIGHT BREAST: No discrete enhancing mass, dominant focus, or other abnormal enhancement within the ri ght breast. No abnormal axillary or internal mammary lymph nodes. Stable appearance of fluid signal within the anterior mediastinum corresponding with a suspected samuel cardial cyst noted on comparison CT of the chest Impression: No evidence of breast malignancy. The previously noted focal area of enhancement seen within the left breast is no longer present. No new suspicious findings are identified within either breast. BIRADS 2: Benign A normal MRI does not exclude the presence of some forms of breast malignancy as literature reports s uggest that some forms of ductal carcinoma in situ or lobular carcinoma, particularly, may not be det ected on MRI. The sensitivity and specificity of MRI for cancers under 5 mm may be reduced. MRI does not replace the recommendation for annual conventional mammographic evaluation and should be used as an adjunct to mammography and physical examination as necessary. Signer Name: Cuco Jorgensen MD Signed: 02/09/2021 11:34 AM Workstation Name: [id number]
== END 2021-02-09 09:51 | disposition home or self-care (01) ==
LOC: SPVIMAG 09:50
PROVIDERS: ATTEND Surgery
DX: Z12.31 Encounter for screening mammogram for malignant neoplasm of breast (principal); N64.9 Disorder of breast, unspecified; Z80.3 Family history of malignant neoplasm of breast
CPT/HCPCS: A9575; C8908; 77049